=== PATIENT | female | born 1975 ===

== ENCOUNTER 2018-05-29 21:08 | Emergency (ER) | payer BC, OTHER ==
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
[2018-05-29] MEDS ORDERED: TETANUS & DIPHTHERIA TOX,ADULT 0.5 ML VIAL ONE (21:56)
[2018-05-29] MEDS ORDERED: HYDROCODONE/APAP 5/325 MG TAB ONE (21:56)
== END 2018-05-29 22:10 | disposition home or self-care (01) ==
LOC: ER 21:08
DX: T23.202A Burn of second degree of left hand, unspecified site, initial encounter (principal); T31.0 Burns involving less than 10% of body surface; X15.0XXA Contact with hot stove (kitchen), initial encounter; Z23 Encounter for immunization
CPT/HCPCS: 90714; 99284